=== PATIENT | male | born 1950 | race Caucasian/White ===

== ENCOUNTER 2016-09-07 00:17 | Emergency (ER) | payer OTHER ==
[2016-09-07 00:25] VITALS: BP 151/76; PULSE 60; BMI 31.6
--- NOTE | 2016-09-07 01:40 | PDOC ---
[id number] 4d FELL YESTERDAY, HIT HEAD DENIES LOC Time Seen by Provider: 09/07/16 00:33 - History of Present Illness Initial Comments: This 66-year-old man with a history of hypertension/hyperlipidemia/depression/ anxiety presents with a history of a fall on ice yesterday. Patient impacted the back of his head when he fell on a patch of ice on the sidewalk. There was no loss of consciousness or laceration/abrasion secondary to the fall. Patient was able to walk home and had no difficulty overnight. He presents now because he has had a headache in the back of his head throughout the day today. He denies nausea/vomiting, lightheadedness, change in vision, difficulty in speech or word recall, difficulty with balance. Although he takes aspirin, 81 mg daily he is on no other blood thinner. Past History - Past Medical History Allergies/Adverse Reactions: Allergies Allergy/AdvReac Type Severity Reaction Status Date / Time meperidine HCl [From Demerol] Allergy Verified 09/07/16 00:19 Home Medications: Ambulatory Orders Amlodipine Besylate [Norvasc] 10 mg PO HS 09/01/12 Aspirin [ASA] 81 mg PO HS 09/01/12 Atorvastatin Ca [Lipitor] 20 mg PO HS 09/01/12 Buspirone HCl [Buspar] 10 mg PO DAILY 09/01/12 Cholecalciferol (Vitamin D3) [Vitamin D] 1,000 unit PO HS 09/01/12 Magnesium Oxide [Magnesium] 400 mg PO HS 09/01/12 Nadolol [Corgard] 40 mg PO HS 09/01/12 Ramipril [Altace] 10 mg PO HS 09/01/12 Sertraline HCl [Zoloft] 100 mg PO DAILY 09/01/12 Ketorolac Tromethamine [Toradol] 10 mg PO TID PRN #21 tablet 09/02/14 Tamsulosin HCl [Flomax] 0.4 mg PO DAILY #7 cap.er.24h 09/02/14 Anemia: No Asthma: No Cardiac Disorders: No CVA: No COPD: No CHF: No Diabetes: No GI Disorders: Yes (diverticulitis) HTN: Yes Hypercholesterolemia: Yes Kidney Stones: Yes Lung CA: Yes (DEPRESSION/ANXIETY) - Psycho/Social/Smoking Cessation Hx Anxiety: Yes Suicidal Ideation: No Smoking Status: No Smoking History: Never smoked Have you smoked in the past 12 months: No Number of Cigarettes Smoked Daily: 0 Information on smoking cessation initiated: No Hx Alcohol Use: No Drug/Substance Use Hx: No Substance Use Type: None Review of Systems - Review of Systems Able to Perform ROS?: Yes Comments:: 12 point review of systems is negative except for what is noted in the history of present illness *Physical Exam - Vital Signs Last Vital Signs Temp Pulse Resp BP Pulse Ox 60 16 151/76 98 09/07/16 00:21 09/07/16 00:21 09/07/16 00:21 09/07/16 00:21 - Physical Exam Comments: GENERAL: Adult male, alert and oriented 3, in no acute distress HEAD: Mild tenderness with minimal edema midline parietal region; no abrasions/ lacerations noted EYES: PERRLA, EOMI, sclera anicteric, conjunctiva clear. ENT: Ears normal, nares patent, oropharynx clear without exudates. Dry mucous membranes. NECK: Normal range of motion, nontender, supple without lymphadenopathy, JVD, or masses. LUNGS: Breath sounds equal, clear to auscultation bilaterally. No wheezes, and no crackles. HEART:Regular rate and rhythm, normal S1 and S2 without murmur, rub or gallop. ABDOMEN:.normal bowel sounds No guarding,tenderness or rebound.No masses No distention. EXTREMITIES: Normal range of motion, no edema. No clubbing or cyanosis. No erythema, or tenderness. NEUROLOGICAL: Cranial nerves II through XII grossly intact. Normal speech. No focal neurological deficits. MUSCULOSKELETAL: Back non-tender to palpation, no CVA tenderness SKIN: Warm, Dry, normal turgor, no rashes or lesions noted. Medical Decision Making - Medical Decision Making This 66-year-old man presents over 24 hours after hitting the back of his head when he slipped on ice. There was no loss of consciousness at the scene. Only symptom now is occipital headache. He denies nausea/vomiting, balance changes or lightheadedness, vision or speech difficulties. The patient does not take any anticoagulation except for aspirin 81 mg daily. Exam is unremarkable with minimal tenderness and no edema/contusion of the occipital scalp. He has no neck tenderness and no neurologic deficit. Because this patient has no significant risk factors for delayed intracranial bleeding, head CT will be deferred. Patient has been advised to return if he has any persistent or worsening headache or develops nausea/lightheadedness/ lethargy/other neurologic symptoms. Patient understands and agrees to the plan. He should follow-up with his general medical doctor in the near future. *DC/Admit/Observation/Transfer Diagnosis at time of Disposition: Contusion of scalp Qualifiers: Encounter type: initial encounter Qualified Code(s): S00.03XA - Contusion of scalp, initial encounter - Discharge Dispostion Disposition: HOME Condition at time of disposition: Stable - Referrals Referrals: Reed Bo MD [Staff Physician] - 1 week - Patient Instructions Printed Discharge Instructions: DI for Closed Head Injury Additional Instructions: keep head elevated tylenol as needed for headache continue other medications as prescribed return if headache worsens or you develop nausea/lightheadedness followup with Dr Bo within the next week
== END 2016-09-07 01:55 | disposition home or self-care (01) ==
LOC: FER 00:17
DX: S00.03XA Contusion of scalp, initial encounter (principal); W00.9XXA Unspecified fall due to ice and snow, initial encounter; Y93.9 Activity, unspecified; Y92.410 Unspecified street and highway as the place of occurrence of the external cause; I10 Essential (primary) hypertension; E78.5 Hyperlipidemia, unspecified; F41.8 Other specified anxiety disorders; Z79.82 Long term (current) use of aspirin
CPT/HCPCS: 99281-25

== ENCOUNTER 2017-04-28 06:21 | Inpatient (IN) | payer OTHER ==
[2017-04-06 17:17] VITALS: BMI 35.2
[~2017-04-28 06:21] MED LIST: CEFAZOLIN 2 GM in DEXTROSE 5%-WATER - 50 ML IVPB ONE; CELECOXIB 200 MG CAPSULE PO ONE; GABAPENTIN 300 MG CAPSULE (FP) PO ONE; PANTOPRAZOLE 40 MG TABLET (FP) PO ONE; ROPIVICAINE 0.2%/MORPH PF/KETOROLAC - 51ML DISP.SYRINGE IA ONE; TRANEXAMIC ACID 1000 MG/10 ML VIAL IVPUSH ONE; VANCOMYCIN 1,750 MG in DEXTROSE 5%-WATER - 250 ML IVPB ONE; oxyCODONE HCL 10 MG SUSTAINED ACTING TABLET PO ONE
[2017-04-28] MEDS ORDERED: MIDAZOLAM HCL 2 MG/2 ML SINGLE DOSE VIAL ONE ×2 (06:54→08:22)
[2017-04-28] MEDS ORDERED: SODIUM CHLORIDE 0.9% P/F 10 ML VIAL IJ ONE (06:55)
[2017-04-28] MEDS ORDERED: ROPIVACAINE HCL 0.5% 30ML VIAL ONE (06:55)
[2017-04-28] MEDS ORDERED: DEXAMETHASONE SOD PHOSPHATE/PF 10 MG/ML SDV ONE (06:55)
[2017-04-28] MEDS ORDERED: PANTOPRAZOLE 40 MG TABLET (FP) ONE (07:09)
[2017-04-28] MEDS ORDERED: CELECOXIB 200 MG CAPSULE ONE (07:09)
[2017-04-28] MEDS ORDERED: GABAPENTIN 300 MG CAPSULE (FP) ONE (07:09)
[2017-04-28] MEDS ORDERED: TRANEXAMIC ACID 1000 MG/10 ML VIAL ONE ×2 (07:24→08:59)
[2017-04-28] MEDS ORDERED: ceFAZolin SODIUM 1 GM VIAL ONE ×2 (07:24→08:48)
[2017-04-28] MEDS ORDERED: ROPIVICAINE 0.2%/MORPH PF/KETOROLAC - 51ML DISP.SYRINGE IA ONE (07:24)
[2017-04-28] MEDS ORDERED: VANCOMYCIN 1,000 MG VIAL (RESTRICTED TO ID ONLY) ONE (07:24)
[2017-04-28] MEDS ORDERED: VANCOMYCIN 1,750 MG in DEXTROSE 5%-WATER - 250 ML IVPB ONE (07:30)
[2017-04-28] MEDS ORDERED: BUPIVACAINE HCL/PF 0.5% (5MG/ML) 10 ML VIAL ONE (07:57)
--- NOTE | 2017-04-28 08:06 | HP ---
Admitting History and Physical - Admission Chief Complaint: left hip pain History of Present Illness: 66yo male with left hip pain, dx'ed with severe left hip OA, failed conservative mgmt, indicated for FORREST History Source: Patient, Medical Record Limitations to Obtaining History: No Limitations - Past Medical History Cardiovascular: Yes: HTN, Hyperlipdemia Psych: Yes: Depression Musculoskeletal: Yes: Osteoarthritis - Smoking History Smoking history: Never smoked Have you smoked in the past 12 months: No Aproximately how many cigarettes per day: 0 - Alcohol/Substance Use Hx Alcohol Use: No - Social History Usual Living Arrangement: Yes: Alone ADL: Independent Home Medications - Allergies Allergies/Adverse Reactions: Allergies Allergy/AdvReac Type Severity Reaction Status Date / Time meperidine HCl [From Demerol] Allergy Severe Vomiting Verified 04/06/17 17:02 - Home Medications Home Medications: Ambulatory Orders Amlodipine Besylate [Norvasc] 10 mg PO DAILY 09/01/12 Aspirin [ASA] 81 mg PO HS 09/01/12 Cholecalciferol (Vitamin D3) [Vitamin D] 2,000 unit PO HS 09/01/12 Magnesium Oxide [Magnesium] 400 mg PO HS 09/01/12 Nadolol [Corgard] 40 mg PO HS 09/01/12 Ramipril [Altace] 10 mg PO HS 09/01/12 Atorvastatin Ca [Lipitor] 40 mg PO HS 04/06/17 Buspirone HCl [Buspar -] 10 mg PO DAILY 04/06/17 Diazepam [Valium] 5 mg PO BID PRN 04/06/17 L.acidoph,Paracasei, B.lactis [Probiotic] 1 each PO BID 04/06/17 [place]-3 Fatty Acids/Fish Oil [Fish Oil 1,000 mg Softgel] 1 each PO DAILY Sertraline HCl [Zoloft] 150 mg PO DAILY 04/06/17 Nadolol [Corgard] 20 mg PO DAILY 04/28/17 Physical Examination Vital Signs: Vital Signs Temperature 98.1 F 04/28/17 07:18 Pulse Rate 51 L 04/28/17 07:18 Respiratory Rate 16 04/28/17 07:18 Blood Pressure 141/84 04/28/17 07:18 O2 Sat by Pulse Oximetry (%) Constitutional: Yes: Well Nourished, No Distress, Calm Eyes: Yes: WNL, Conjunctiva Clear, EOM Intact HENT: Yes: WNL, Atraumatic, Normocephalic Neck: Yes: WNL, Supple Cardiovascular: Yes: WNL, Regular Rate and Rhythm Respiratory: Yes: WNL, Regular Gastrointestinal: Yes: WNL, Soft, Abdomen, Obese ...Rectal Exam: Yes: Deferred Musculoskeletal: Yes: Joint Stiffness, Joint Swelling, Muscle Pain, Muscle Weakness Extremities: Yes: WNL Edema: No Peripheral Pulses WNL: Yes Integumentary: Yes: WNL Neurological: Yes: WNL, Alert, Oriented ...Motor Strength: WNL Psychiatric: Yes: WNL, Alert, Oriented Labs: reviewed in chart Imaging - Results X-ray: Image Reviewed Cat Scan: Report Reviewed, Image Reviewed Problem List - Problems (1) Osteoarthritis of left hip Code(s): M16.12 - UNILATERAL PRIMARY OSTEOARTHRITIS, LEFT HIP Qualifiers: Osteoarthritis type: primary Qualified Code(s): M16.12 - Unilateral primary osteoarthritis, left hip Assessment/Plan 66yo male with left hip OA for L FORREST
[2017-04-28] MEDS ORDERED: PROPOFOL 20 ML ONE ×3 (08:36)
--- NOTE | 2017-04-28 11:53 | OP ---
Operative Note - Note: Operative Date: 04/28/17 Pre-Operative Diagnosis: left hip OA Operation: left FORREST Post-Operative Diagnosis: Same as Pre-op Surgeon: Ken Le House Painter: Kevin Schultz Anesthesia: Spinal Estimated Blood Loss (mls): 200
--- NOTE | 2017-04-28 12:20 | SPEC ---
DATE OF OPERATION: 04/28/2017 PREOPERATIVE DIAGNOSIS: Left hip osteoarthritis. POSTOPERATIVE DIAGNOSIS: Left hip osteoarthritis. PROCEDURE: Left total hip replacement with Makoplasty robotic navigation. ATTENDING SURGEON: León Manrique MD SENIOR ENVIRONMENTAL SCIENTIST: FLASH Landaverde ANESTHESIA: Spinal plus sedation. ESTIMATED BLOOD LOSS: 200 mL. COMPLICATIONS: None. SPECIMENS: Resected bone was sent for pathology analysis. DISPOSITION: The patient was transferred to the PACU in stable condition. IMPLANT USED: Enzo Accolade II size 5 femoral component, Enzo Tritanium 60-mm acetabular component with 25 and 35-mm screws, MDM bipolar head with inner ceramic +4-mm offset head ball. INDICATIONS: This is a 66-year-old male who presented to the office complaining of severe left hip pain. He was seen and examined by Dr. Manrique and diagnosed with severe left hip osteoarthritis. Patient was treated nonoperatively but continued to have severe pain and ambulatory dysfunction. He was subsequently indicated for left total hip replacement. The risks, benefits, and alternatives to the surgery were explained to the patient in great detail, and he elected to proceed with the surgery. On the day of surgery, the patient was taken to the operating room and placed on the OR table. Spinal anesthesia was administered by the anesthesiologist. The patient was then positioned in the lateral decubitus position on the table and all bony prominences were padded. An axillary roll was placed. The operative hip was then prepped and draped in the usual sterile fashion and intravenous antibiotics were given for infection prophylaxis. A surgical time-out was then performed with the team, and the patients identity, procedure, side, availability of implants, and the administration of antibiotics were confirmed. An approximately 15-cm longitudinal incision was made through the skin centered on the greater trochanter of the hip. This dissection was carried down through the subcutaneous tissues to the deep fascia. This fascia was then incised and a Cobra was placed around the inferior femoral neck. Electrocautery was used to reflect the anterior 40% of the gluteus medius and minimus starting at the musculotendinous junction and leaving a cuff for closure. This was reflected to reveal the capsule of the hip joint. An anterior capsulectomy was performed and the femoral head and neck were visualized. Grade 4 changes were noted diffusely throughout the joint. At this point, three small stab incisions were made superior to the main incision along the iliac crest. Three self-drilling Steinmann pins were then placed and the R2G pelvic array was attached. Reference points on the limb were then entered into the robotic device and the limb length deficiency, offset, and femoral neck resection level were then calculated by the software. The hip was then dislocated with traction and external rotation. An oscillating saw was used to make the femoral neck cut at the level previously templated, and the femoral head was removed. Attention was then turned to the acetabulum. Retractors were then placed around the acetabulum and the labrum was removed. An acetabular checkpoint pin and the R2G software were used to register the contours of the acetabulum. The acetabulum was then reamed in a single stage to the preoperatively templated size using the Trace robotic arm. The appropriately sized cup was then impacted and had solid fixation as well as the preset inclination and version of 40 and 20 degrees, respectively. A polyethylene liner was then placed in the cup. Attention was then turned back to the femur, which was externally rotated for improved visualization. A femoral neck elevator was used to present the femoral neck cut, a box osteotome was used to enter the femoral canal, and a canal finder was used to go down the femoral shaft. The Trace broaches were used sequentially until the optimal scratch fit was achieved. This correlated with the preoperatively templated size. From here, several different offset head and neck configurations were tested until excellent stability and length were obtained. These measurements were quantified using the R2G software. All trial components were then removed, the femur was copiously irrigated, and the final components were placed. Leg length and stability were checked again and found to be excellent. Irrigation was performed again. Wound closure was started by repairing the abductor muscles with a no. 2 FiberWire stitch in a Krackow configuration passed through bone tunnels in the greater trochanter and tied over a bony bridge. This repair was then reinforced with a 0 V-Loc 180 barbed suture. Next, no. 1 Polysorb and 0 V-Loc 180 were used to close the fascia. The deep subcutaneous tissue was closed with no. 1 Polysorb sutures, and 2-0 Polysorb was used for the superficial subcutaneous tissue. The skin was closed using both 3-0 V-Loc 90 suture in a running subcuticular fashion and SwiftSet skin adhesive. The Trace array and pins were removed from the iliac crest and the stab incision sites were irrigated and closed with 4-0 Polysorb sutures and SwiftSet skin adhesive. Once this was completed, a sterile dressing was applied. The patient was then awakened and taken to the PACU in stable condition. After final components were placed, a 3-minute dilute Betadine lavage was performed according to the [facility] protocol. Following this, the wound was thoroughly irrigated with normal saline via pulsatile lavage and wound closure was begun. LEÓN MANRIQUE M.D. ED/[id number]
[2017-04-28] MEDS ORDERED: ACETAMINOPHEN 1000 MG/100 ML VIAL (NON FORMULARY) IVPB ONE (12:27)
[2017-04-28] MEDS ORDERED: traMADol HCL 50 MG TABLET ONE (12:30)
[2017-04-28] MEDS: KETOROLAC TROMETHAMINE 30 MG/1 ML VIAL IVPUSH SCH ×2 (12:30→18:08)
[2017-04-28] MEDS ORDERED: ONDANSETRON 4 MG/2 ML VIAL IVPUSH PRN (12:32)
[2017-04-28] MEDS ORDERED: MAGNESIUM HYDROX 2400MG/30ML ORAL SUSPENSION 30 ML CUP PO PRN (12:32)
[2017-04-28] MEDS ORDERED: MAG HYDROX/AL HYDROX/SIMETH 30 ML UNIT-DOSE CUP PO PRN (12:32)
[2017-04-28] MEDS ORDERED: LACTATED RINGERS SOLUTION 1,000 ML IV SCH (12:45)
--- NOTE | 2017-04-28 14:22 | SURG ---
Surgery Homicide Investigator Note Homicide Investigator: Kevin Schultz PA-C Date of Service: 04/28/17 Diagnosis: left hip OA Procedure: GARY Left total hip replacement I was present for the entirety of the operative procedure. For further detail, please refer to operative report. Visit type - Case Type Case Type: Scheduled Admission - New patient This patient is new to me today: Yes Date on this admission: 04/28/17
[2017-04-28] MEDS ORDERED: oxyCODONE HCL 5 MG TABLET PO PRN (16:41)
[2017-04-28] MEDS: CEFAZOLIN 2 GM/D5W 2 GM/50 ML ML IVPB SCH (18:16)
[2017-04-28] MEDS ORDERED: DEXAMETHASONE SOD PHOSPHATE 10 MG/1 ML VIAL IVPB ONE (20:00)
[2017-04-28] MEDS ORDERED: PT OWN MED DRAWER 7, Y5N ONE (21:09)
[2017-04-28] MEDS: RAMIPRIL 5 MG CAPSULE (FP) PO SCH (21:14)
[2017-04-28] MEDS: MAGNESIUM OXIDE 400 MG TABLET (FP) PO SCH (21:14)
[2017-04-28] MEDS: NADOLOL 20 MG TABLET (FP) PO SCH (21:14)
[2017-04-28] MEDS: ATORVASTATIN CA 40 MG TABLET (FP) PO SCH (21:15)
[2017-04-28] MEDS: SENNOSIDES/DOCUSATE COMBO (SENNA PLUS) TABLET (UD) PO SCH (21:15)
[2017-04-28] MEDS: diazePAM 5 MG TABLET PO PRN (21:15)
[2017-04-28] MEDS: GABAPENTIN 300 MG CAPSULE (FP) PO SCH (21:15)
[2017-04-28] MEDS: ASCORBIC ACID 500 MG TABLET (FP) PO SCH (21:15)
[2017-04-28] MEDS: oxyCODONE HCL 5 MG TABLET PO PRN (21:15)
[2017-04-28] MEDS: CELECOXIB 200 MG CAPSULE PO SCH (21:15)
[2017-04-28] MEDS: LACTOBACILLUS ACIDOPHILUS 1 EACH TAB (FP) PO SCH (21:15)
[2017-04-28] MEDS ORDERED: PATIENT'S OWN MEDICATION (NON-FORMULARY) (L.Acidoph,Paracasei, B.Lactis [Probiotic] 1 EACH PO SCH (22:00)
[2017-04-28] MEDS ORDERED: GABAPENTIN 300 MG CAPSULE (FP) PO SCH (22:00)
[2017-04-28] MEDS ORDERED: PATIENT'S OWN MEDICATION (NON-FORMULARY) (Magnesium Oxide [Magnesium] 400 MG) PO SCH (22:00)
[2017-04-29] MEDS: KETOROLAC TROMETHAMINE 30 MG/1 ML VIAL IVPUSH SCH ×2 (00:35→06:30)
[2017-04-29] MEDS: CEFAZOLIN 2 GM/D5W 2 GM/50 ML ML IVPB SCH (02:53)
[2017-04-29] MEDS ORDERED: ACETAMINOPHEN 325 MG TABLET (FP) ONE (06:25)
[2017-04-29] MEDS: oxyCODONE HCL 5 MG TABLET PO PRN ×3 (06:31→21:13)
[2017-04-29 07:42] LABS: MCHC 32.6 g/dl (32.0-35.9); MEAN CELL VOLUME 89.2 fl (80-96); PLATELET COUNT 267 K/MM3 (134-434); RDW 12.9 % (11.9-15.9); WHITE BLOOD COUNT 14.4 K/mm3 (4.0-10.8)
[2017-04-29 08:05] LABS: ANION GAP 8 (8-16); CALCIUM 8.5 mg/dl (8.4-10.2); CO2 27 mmol/L (22-28); CREATININE 0.6 mg/dl (0.6-1.3); GLUCOSE,RANDOM 156 mg/dl (74-106)
[2017-04-29] MEDS: ASPIRIN 325 MG TABLET PO SCH (08:55)
[2017-04-29] MEDS ORDERED: PT OWN MED DRAWER 7, Y5N ONE ×2 (09:02→21:03)
[2017-04-29] MEDS: busPIRone HCL 5 MG TABLET PO SCH (09:04)
[2017-04-29] MEDS: LACTOBACILLUS ACIDOPHILUS 1 EACH TAB (FP) PO SCH ×2 (09:04→21:06)
[2017-04-29] MEDS: CELECOXIB 200 MG CAPSULE PO SCH ×2 (09:06→21:06)
[2017-04-29] MEDS: amLODIPine BESYLATE 10 MG TABLET (FP) PO SCH (09:06)
[2017-04-29] MEDS: SENNOSIDES/DOCUSATE COMBO (SENNA PLUS) TABLET (UD) PO SCH ×2 (09:06→21:10)
[2017-04-29] MEDS: ASCORBIC ACID 500 MG TABLET (FP) PO SCH ×2 (09:08→21:14)
[2017-04-29] MEDS: MULTIVITAMINS (DAILY MVI) TABLET (FP) PO SCH (09:08)
[2017-04-29] MEDS: PANTOPRAZOLE 40 MG TABLET (FP) PO SCH (09:08)
[2017-04-29] MEDS: SERTRALINE HCL 50 MG TABLET (FP) PO SCH (09:08)
[2017-04-29] MEDS: NADOLOL 20 MG TABLET (FP) PO SCH ×2 (09:08→21:11)
[2017-04-29] MEDS: GABAPENTIN 300 MG CAPSULE (FP) PO SCH ×2 (10:00→21:07)
[2017-04-29] MEDS ORDERED: SERTRALINE HCL 150 MG PO SCH (10:00)
--- NOTE | 2017-04-29 10:12 | PN ---
Progress Note (short form) - Note Progress Note: ANESTHESIA POSTOP: Patient doing well. POD #1. Participating in PT. Pain adequately controlled. Tolerating PO. Encouraged IS.
[2017-04-29] MEDS: diazePAM 5 MG TABLET PO PRN (19:15)
[2017-04-29] MEDS: RAMIPRIL 5 MG CAPSULE (FP) PO SCH (21:06)
[2017-04-29] MEDS: MAGNESIUM OXIDE 400 MG TABLET (FP) PO SCH (21:08)
[2017-04-29] MEDS: ATORVASTATIN CA 40 MG TABLET (FP) PO SCH (21:12)
[2017-04-30 06:48] VITALS: BP 136/43; PULSE 68; TEMP 98
[2017-04-30 07:34] LABS: MCH 29.4 pg (25.7-33.7); MCHC 33.4 g/dl (32.0-35.9); MEAN CELL VOLUME 88.1 fl (80-96); MEAN PLT VOLUME 9.2 fl (7.5-11.1); PLATELET COUNT 239 K/MM3 (134-434); RDW 13.1 % (11.9-15.9); WHITE BLOOD COUNT 10.6 K/mm3 (4.0-10.8)
[2017-04-30 08:14] LABS: ANION GAP 6 (8-16); CALCIUM 8.2 mg/dl (8.4-10.2); CO2 31 mmol/L (22-28); CREATININE 0.5 mg/dl (0.6-1.3); GLUCOSE,RANDOM 129 mg/dl (74-106)
[2017-04-30] MEDS: ASPIRIN 325 MG TABLET PO SCH (08:38)
[2017-04-30] MEDS: busPIRone HCL 5 MG TABLET PO SCH (09:36)
[2017-04-30] MEDS: CELECOXIB 200 MG CAPSULE PO SCH (09:36)
[2017-04-30] MEDS: LACTOBACILLUS ACIDOPHILUS 1 EACH TAB (FP) PO SCH (09:36)
[2017-04-30] MEDS: SENNOSIDES/DOCUSATE COMBO (SENNA PLUS) TABLET (UD) PO SCH (09:37)
[2017-04-30] MEDS: GABAPENTIN 300 MG CAPSULE (FP) PO SCH (09:37)
[2017-04-30] MEDS: amLODIPine BESYLATE 10 MG TABLET (FP) PO SCH (09:37)
[2017-04-30] MEDS: MULTIVITAMINS (DAILY MVI) TABLET (FP) PO SCH (09:37)
[2017-04-30] MEDS: PANTOPRAZOLE 40 MG TABLET (FP) PO SCH (09:37)
[2017-04-30] MEDS: SERTRALINE HCL 50 MG TABLET (FP) PO SCH (09:38)
[2017-04-30] MEDS: ASCORBIC ACID 500 MG TABLET (FP) PO SCH (09:38)
[2017-04-30] MEDS: oxyCODONE HCL 5 MG TABLET PO PRN (09:39)
--- NOTE | 2017-04-30 10:11 | DS ---
Physical Examination Vital Signs: Vital Signs Temperature 98.0 F 04/30/17 06:00 Pulse Rate 68 04/30/17 06:00 Respiratory Rate 19 04/30/17 06:00 Blood Pressure 136/43 04/30/17 06:00 O2 Sat by Pulse Oximetry (%) 95 04/30/17 06:47 Labs: CBC, BMP 04/30/17 07:15 04/30/17 07:15 Discharge Summary Reason For Visit: OSTEOARTHRITIS LEFT HIP Current Active Problems Osteoarthritis of left hip (Acute) Procedures: Principal: left FORREST Hospital Course: Admitted for elective surgery. Procedure performed without complications. Pt received postoperative antibiotic prophylaxis and DVT ppx. Ambulated with physical therapy. Stable for discharge home with outpatient followup. Condition: Stable - Instructions Diet, Activity, Other Instructions: Dr Le - Hip Replacement Instructions Keep the Aquacel dressing on until removed by Dr. Le in 10-14 days - it is antibacterial and waterproof and you can shower with it on. Call the office for a follow-up appointment with Dr. Le in 10-14 days. Take one Aspirin 325mg daily for 6 weeks to prevent blood clots in your legs. Take one Pantoprazole 40mg daily for 6 weeks to protect against heartburn and ulcers. Take Celebrex 200mg twice daily for 30 days to reduce swelling and inflammation. Take a stool softener, multivitamin, and extra vitamin C supplement daily For pain: *Mild pain (1-3/10): Take 1 Tramadol tablet every 4 hours as needed. Moderate pain (4-6/10): Take 1 Tramadol tablet and 1 Percocet tablet every 4 hours as needed. Severe pain (7-10/10): Take 1 Tramadol tablet and 2 Percocet tablets every 4 hours as needed. Activity: You can put as much weight on the operative leg as you want. For the first 6 weeks, all you need to do is walk around the house, go up/down stairs, and sit down/get up. After 6 weeks when everything is healed (and bone has grown into the implant) you will be sent for more intensive outpatient physical therapy. Always use a walker or cane for balance and to prevent falls. Disposition: VNS/HOME HEALTH CARE - Home Medications Comprehensive Discharge Medication List: Ambulatory Orders Amlodipine Besylate [Norvasc -] 10 mg PO DAILY 09/01/12 Cholecalciferol (Vitamin D3) [Vitamin D] 2,000 unit PO HS 09/01/12 Magnesium Oxide [Magnesium] 400 mg PO HS 09/01/12 Nadolol [Corgard] 40 mg PO HS 09/01/12 Ramipril [Altace] 10 mg PO HS 09/01/12 Atorvastatin Ca [Lipitor] 40 mg PO HS 04/06/17 Buspirone HCl [Buspar -] 10 mg PO DAILY 04/06/17 Diazepam [Valium] 5 mg PO BID PRN 04/06/17 L.acidoph,Paracasei, B.lactis [Probiotic] 1 each PO BID 04/06/17 [place]-3 Fatty Acids/Fish Oil [Fish Oil 1,000 mg Softgel] 1 each PO DAILY Sertraline HCl [Zoloft] 150 mg PO DAILY 04/06/17 Nadolol [Corgard] 20 mg PO DAILY 04/28/17 Nadolol 20 mg PO DAILY 04/29/17 Ascorbic Acid [Vitamin C -] 500 mg PO BID tablet 04/30/17 Aspirin [ASA -] 325 mg PO DAILY@0800 tablet 04/30/17 Celecoxib [CeleBREX -] 200 mg PO BID #60 capsule 04/30/17 Multivitamins [Multivit ([facility] Formulary)] 1 tab PO DAILY tab 04/30/17 Oxycodone HCl/Acetaminophen [Percocet 5-325 mg Tablet] 1 - 2 tab PO Q4H PRN #60 tablet MDD 8 04/30/17 Pantoprazole Sodium [Protonix -] 40 mg PO DAILY #40 tablet.ec 04/30/17 Sennosides/Docusate Sodium [Pericolace -] 2 tablet PO BID tablet 04/30/17 Tramadol HCl 50 mg PO Q4H PRN #90 tablet MDD 6 04/30/17
[2017-04-30] MEDS: NADOLOL 20 MG TABLET (FP) PO SCH (13:23)
[2017-04-30] MEDS ORDERED: NADOLOL 20 MG TABLET (FP) PO SCH (14:00)
--- NOTE | 2017-05-02 15:08 | PATH ---
Surgical Pathology Report Patient Name: LEÓN MATTSON Med. Rec. #: [id number] /Age/Gender: 1950 (Age: 66) / M Account: [id number] Location: [facility] Taken: 04/28/2017 Received: 04/28/2017 Reported: 05/02/2017 Physicians: León Le M.D. Specimen(s) Received LEFT FEMORAL HEAD Clinical History Left hip osteoarthritis Final Diagnosis FEMORAL HEAD, LEFT, TOTAL HIP REPLACEMENT: DEGENERATIVE JOINT DISEASE. Electronically Signed Susan Her M.D. Gross Description Received in formalin, labeled "left femoral head," is a 5.3 x 5.2 x 4.7 cm. femoral head with a 1.5 cm in length portion of femoral neck attached. The margin of resection is smooth. There is a 4.8 cm in greatest dimension area of eburnation present. The remaining articular surface is coto-yellow and diffusely granular. The underlying trabecular bone is yellow and hard. Separately received within the same container is additional 4.0 x 2.0 x 1.2 cm portion of bone. Utility Arborist sections are submitted in one cassette, following decalcification. 04/29/201704/29/2017
== END 2017-04-30 13:23 | disposition home health service (06) | DRG 301 ==
LOC: FM/S 06:21
PROVIDERS: ADMIT Student in an Organized Health Care Education/Training Program; ATTEND Student in an Organized Health Care Education/Training Program
PROC: 8E0W0CZ Robotic Assisted Procedure of Trunk Region, Open Approach (ICD-10-PCS; 2017-04-28)
PROC: 0SRB04A Replacement of Left Hip Joint with Ceramic on Polyethylene Synthetic Substitute, Uncemented, Open Approach (ICD-10-PCS; principal; 2017-04-28 09:10)
DX: M16.12 Unilateral primary osteoarthritis, left hip (principal); I10 Essential (primary) hypertension; E78.5 Hyperlipidemia, unspecified; Z68.35 Body mass index [BMI] 35.0-35.9, adult; F32.9 Major depressive disorder, single episode, unspecified
CPT/HCPCS: 36415; 73502-TC-LT; 80048; 85027; 88304-TC; 88311-TC; 94010; 94760; 97116-GP; 97162-GP

== ENCOUNTER 2017-05-09 20:23 | Emergency (ER) | payer OTHER ==
--- NOTE | 2017-05-09 20:34 | PDOC ---
History of Present Illness - General History Source: Patient Exam Limitations: No Limitations - History of Present Illness Initial Comments: 05/09/17 21:34 The patient is a 66 year old male, with a significant past medical history of hypertension, hyperlipidemia, IBS, diverticulitis, nocturia,and kidney stones, who presents to the emergency department s/p left hip replacement on 04/28/17 with a rash to the left lower back and left upper thigh around the incision site for several days. The patient reports he first noted a rash surrounding the bandage covering his incision approximately 4 days after his surgery. Patient reports he is supposed to get the bandage removed from his left hip and left lower back on 05/17/17. In addition to this rash, patient reports noting a new rash away from the incision sites 2 days ago to his left flank. Patient describes his rashes as erythematous and itchy. He reports taking two 25 mg Benadryl yesterday with minimal relief of symptoms. He denies any associated lesions, discharge, or pain. Patient reports significant swelling in his left leg 4 days after his surgery, for which he returned to the ER for evaluation, where he had an US which did not reveal any DVT. He denies any fever, chills, cough, headache, or dizziness. He denies any chest pain, shortness of breath, diaphoresis, palpitations, or calf cramping. Patient also endorses an itchy rash on his forearm bilaterally. Patient states he started a new bathing soap last week, but stopped it one day ago. He also reports being prescribed Tramadol , Oxycodone, and Pericolace, which he stopped 1 day ago. He denies any recent travel or sick contacts. Patient reports he has been ambulatory since surgery. Allergies: Meperidine HCl Past Surgical History: Left Hip replacement(04/28/17) Social History: Non smoker. No ETOH or recreational drug use. PCP: Dr. Bo Surgeon: Dr. Le <Pam Ahumada - Last Filed: 05/09/17 22:05> <Ching Diaz - Last Filed: 05/10/17 04:20> - General Chief Complaint: Rash Stated Complaint: RASH Time Seen by Provider: 05/09/17 20:33 Past History <Pam Ahumada - Last Filed: 05/09/17 22:05> - Past Medical History Anemia: No Asthma: No Cancer: No Cardiac Disorders: No ("STATES ENLARGED AORTA"-FOLLOWS WITH CARDIOLOGY) CVA: No COPD: No CHF: No Dementia: No Diabetes: No GI Disorders: Yes (diverticulitis,IBS-ON PROBIOTIC) Disorders: No (NOCTURIA) HTN: Yes Hypercholesterolemia: Yes Kidney Stones: Yes Liver Disease: No Seizures: No Thyroid Disease: No Lung CA: Yes (DEPRESSION/ANXIETY) - Surgical History Abdominal Surgery: No Appendectomy: No Cardiac Surgery: No Cholecystectomy: No Lung Surgery: No Neurologic Surgery: No Orthopedic Surgery: No - Suicide/Smoking/Psychosocial Hx Smoking Status: No Smoking History: Never smoked Have you smoked in the past 12 months: No Number of Cigarettes Smoked Daily: 0 Hx Alcohol Use: No Drug/Substance Use Hx: No Substance Use Type: None <Ching Diaz - Last Filed: 05/10/17 04:20> - Past Medical History Allergies/Adverse Reactions: Allergies Allergy/AdvReac Type Severity Reaction Status Date / Time meperidine HCl [From Demerol] Allergy Severe Vomiting Verified 04/06/17 17:02 Home Medications: Ambulatory Orders Amlodipine Besylate [Norvasc -] 10 mg PO DAILY 09/01/12 Cholecalciferol (Vitamin D3) [Vitamin D] 2,000 unit PO HS 09/01/12 Magnesium Oxide [Magnesium] 400 mg PO HS 09/01/12 Nadolol [Corgard] 40 mg PO DAILY 09/01/12 Ramipril [Altace] 10 mg PO HS 09/01/12 Atorvastatin Ca [Lipitor] 40 mg PO HS 04/06/17 Buspirone HCl [Buspar -] 10 mg PO DAILY 04/06/17 Diazepam [Valium] 5 mg PO BID PRN 04/06/17 L.acidoph,Paracasei, B.lactis [Probiotic] 1 each PO BID 04/06/17 [place]-3 Fatty Acids/Fish Oil [Fish Oil 1,000 mg Softgel] 1 each PO DAILY Sertraline HCl [Zoloft] 150 mg PO DAILY 04/06/17 Nadolol [Corgard] 20 mg PO HS 04/28/17 Aspirin [ASA -] 325 mg PO DAILY@0800 tablet 04/30/17 Celecoxib [CeleBREX -] 200 mg PO BID #60 capsule 04/30/17 Multivitamins [Multivit ([facility])] 1 tab PO DAILY tab 04/30/17 Oxycodone HCl/Acetaminophen [Percocet 5-325 mg Tablet] 1 - 2 tab PO Q4H PRN #60 tablet MDD 8 04/30/17 Pantoprazole Sodium [Protonix -] 40 mg PO DAILY #40 tablet.ec 04/30/17 Sennosides/Docusate Sodium [Pericolace -] 2 tablet PO BID tablet 04/30/17 Tramadol HCl 50 mg PO Q4H PRN #90 tablet MDD 6 04/30/17 Clobetasol Prop 0.05% Top Cr [Temovate (Nf)] 1 gm TP BID #1 tube 05/09/17 Hydroxyzine HCl [Atarax -] 25 mg PO TID PRN #20 tablet 05/09/17 Review of Systems - Review of Systems Able to Perform ROS?: Yes Comments:: 05/09/17 21:42 CONSTITUTIONAL: Absent: fever, no chills, no fatigue EYES: Absent: visual changes ENT: Absent: ear pain, no sore throat CARDIOVASCULAR: Absent: chest pain, no palpitations RESPIRATORY: Absent: cough, no SOB GI: Absent: abdominal pain, no nausea, no vomiting, no constipation, no diarrhea GENITOURINARY: Absent: dysuria, no frequency, no hematuria MUSCULOSKELETAL: Present: Left lower extremity swelling Absent: back pain, no arthralgia, no myalgia, no calf tenderness or cramping. SKIN: Present: Left upper thigh, left lower back, and bilateral forearm itchy and erythematous rash NEURO: Absent: headache <Ahumada,Giomilsy - Last Filed: 05/09/17 22:05> *Physical Exam - Vital Signs Last Vital Signs Temp Pulse Resp BP Pulse Ox 98.5 F 67 15 145/84 97 05/09/17 20:25 05/09/17 20:25 05/09/17 20:25 05/09/17 20:25 05/09/17 20:25 - Physical Exam Comments: 05/09/17 21:48 GENERAL: The patient is awake, alert, and fully oriented, in no acute distress. HEAD: Normal with no signs of trauma. EYES: Pupils equal, round and reactive to light, extraocular movements intact, sclera anicteric, conjunctiva clear with no pallor. ENT: Ears normal, nares patent, oropharynx clear without exudates. Moist mucous membranes. NECK: Normal range of motion, supple without lymphadenopathy, JVD, or masses. LUNGS: Breath sounds equal, clear to auscultation bilaterally. No wheeze/ crackles. HEART: Regular rate and rhythm, normal S1 and S2 without murmur or rub. ABDOMEN: Soft/nontender/nondistended. BS wnl. No guarding or rebound. No palpable masses. No hepatosplenomegaly. EXTREMITIES: Bilateral lower extremity are moderately edematous from feet to mid thigh. There was nosignificant popliteal or calf tenderness palpable.Normal range of motion. No clubbing or cyanosis. No cords or tenderness. NEUROLOGICAL: Cranial nerves II through XII grossly intact. Normal speech, normal gait. PSYCH: Normal mood, normal affect. SKIN: Erythematous slightly raised rash of the area around left lower back and left lateral proximal thigh underneath duoderm dressing and extending 1 cm outward from the edge of the dressing. The surgical wounds are well healing on both sites. 3 X4 cm area of macular papular rash of the left flank proximal and medial to the lower back incision. There are faintly erythematous papules of bilateral forearms. <Pam Ahumada - Last Filed: 05/09/17 22:05> Medical Decision Making - Medical Decision Making Documentation has been prepared under my direction and personally reviewed by me in its entirety. I attest that this documented accurately reflects all work, treatment, procedures and medical decision making performed by me. <Ching Diaz - Last Filed: 05/10/17 04:20> *DC/Admit/Observation/Transfer - Attestations Scribe Attestion: 05/09/17 21:35 Documentation prepared by Pam Ahumada, acting as medical billing service for Ching Diaz MD. <Pam Ahumada - Last Filed: 05/09/17 22:05> <Ching Diaz - Last Filed: 05/10/17 04:20> Diagnosis at time of Disposition: Allergic reaction Qualifiers: Encounter type: initial encounter Qualified Code(s): T78.40XA - Allergy, unspecified, initial encounter - Discharge Dispostion Disposition: HOME Condition at time of disposition: Stable - Prescriptions Prescriptions: Clobetasol Prop 0.05% Top Cr [Temovate (Nf)] 1 gm TP BID #1 tube Hydroxyzine HCl [Atarax -] 25 mg PO TID PRN #20 tablet PRN Reason: For Itching - Referrals Referrals: Reed Bo MD [Primary Care Provider] - - Patient Instructions Printed Discharge Instructions: DI for General Allergic Reactions Additional Instructions: Keep surgical incision sites open to air, as dry as possible Clobetasol cream to rash twice a day Atarax 25 mg up to 3 times a day as needed for itching Continue other medications as prescribed Return or see your general doctor if rash worsens Follow-up with Dr. Le next week as scheduled - Post Discharge Activity
[2017-05-09 20:51] VITALS: BP 145/84; PULSE 67; TEMP 98.5; BMI 34.9
[2017-05-09] MEDS ORDERED: predniSONE 20 MG TABLET (UD) PO ONE (21:23)
[2017-05-09] MEDS ORDERED: hydrOXYzine HCL 25 MG TABLET (FP) PO ONE ×3 (21:24→22:31)
[2017-05-09] MEDS ORDERED: predniSONE 20 MG TABLET (UD) ONE (21:26)
== END 2017-05-09 23:05 | disposition home or self-care (01) ==
LOC: FER 20:23
DX: T78.40XA Allergy, unspecified, initial encounter (principal); X58.XXXA Exposure to other specified factors, initial encounter; I10 Essential (primary) hypertension; I71.2 Thoracic aortic aneurysm, without rupture; E78.5 Hyperlipidemia, unspecified; K58.9 Irritable bowel syndrome, unspecified; K57.92 Diverticulitis of intestine, part unspecified, without perforation or abscess without bleeding; F41.8 Other specified anxiety disorders; Z87.442 Personal history of urinary calculi; Z96.642 Presence of left artificial hip joint; Z88.8 Allergy status to other drugs, medicaments and biological substances; Z79.82 Long term (current) use of aspirin
CPT/HCPCS: 99282-25

== ENCOUNTER 2020-11-06 00:13 | Emergency (ER) | payer OTHER ==
[2020-11-06 00:20] VITALS: BP 170/97; PULSE 69; TEMP 98.4; BMI 32.3
[2020-11-06] MEDS ORDERED: KETOROLAC TROMETHAMINE 60 MG/2 ML VIAL IM ONE (00:46)
[2020-11-06] MEDS ORDERED: KETOROLAC TROMETHAMINE 60 MG/2 ML VIAL ONE (00:53)
== END 2020-11-06 00:58 | disposition home or self-care (01) ==
LOC: FER 00:13
PROC: 3E0233Z Introduction of Anti-inflammatory into Muscle, Percutaneous Approach (ICD-10-PCS; principal; 2020-11-06)
DX: M54.12 Radiculopathy, cervical region (principal)
CPT/HCPCS: 99284-25

== ENCOUNTER 2022-05-10 14:14 | Emergency (ER) | payer OTHER ==
[2022-05-10 14:27] VITALS: BP 161/87; PULSE 73; RESP 18; TEMP 98; BMI 30.1
== END 2022-05-10 16:20 | disposition home or self-care (01) ==
LOC: FER 14:14
DX: S09.90XA Unspecified injury of head, initial encounter (principal); W10.9XXA Fall (on) (from) unspecified stairs and steps, initial encounter
CPT/HCPCS: 70450-TC; 72125-TC; 99284-25

== ENCOUNTER → 2022-12-16 | Day surgery (SDC) | payer OTHER | END | disposition home or self-care (01) | LOC: JRADIR 10:30 | PROVIDERS: ATTEND Internal Medicine Endocrinology, Diabetes & Metabolism | PROC: 0G9G3ZX Drainage of Left Thyroid Gland Lobe, Percutaneous Approach, Diagnostic (ICD-10-PCS; principal; 2022-12-16) | DX: E04.1 Nontoxic single thyroid nodule (principal) | CPT/HCPCS: 10005; 76942; 88173; 88305-TC ==

== ENCOUNTER 2023-07-14 13:25 | Emergency (ER) | payer OTHER ==
[2023-07-14 14:08] LABS: HEMATOCRIT 48.2 % (35.4-49); HEMOGLOBIN 16.4 G/dL (11.7-16.9); MCH 30.5 pg (25.7-33.7); MEAN CELL VOLUME 89.7 fl (80-96); MEAN PLT VOLUME 8.2 fl (7.5-11.1); PLATELET COUNT 222.4 10^3/uL (134-434); RBC 5.37 10^6/uL (4.00-5.60); WHITE BLOOD COUNT 7.9 10^3/uL (4.0-10.8)
[2023-07-14 14:10] LABS: PLATELET ESTIMATE ADEQUATE
[2023-07-14 14:18] LABS: ALBUMIN 4.1 g/dl (3.4-5.0); BILIRUBIN,TOTAL 0.8 mg/dl (0.2-1); CREATININE 0.4 mg/dl (0.6-1.3); POTASSIUM 3.7 mmol/L (3.5-5.1); TOT PROT 6.2 g/dl (6.4-8.2)
[2023-07-14 14:38] VITALS: BP 165/85; PULSE 65; RESP 18; TEMP 98.3; BMI 32.5
== END 2023-07-14 16:35 | disposition home or self-care (01) ==
LOC: FER 13:25
DX: L03.116 Cellulitis of left lower limb (principal); R50.9 Fever, unspecified
CPT/HCPCS: 36415; 80053; 85027; 93971-TC; 99284-25